=== PATIENT | female | born 1970 | race African-American/Black ===

== ENCOUNTER 2019-09-14 11:46 | Emergency (ER) | payer MEDICAID ==
[~2019-09-14] VITALS: Ht 177.8 cm; Wt 68.0 kg
[2019-09-14 12:04] VITALS: BP 159/103
--- NOTE | 2019-09-14 12:09 | NUR ---
TRIAGE COMPLETE. VSS. RETURNED TO LOBBY AWAITNG BED IN ED.
[2019-09-14 13:23] LABS: APPEARANCE,URINE CLEAR (CLEAR); BILIRUBIN,URINE NEGATIVE (NEGATIVE); BLOOD, URINE NEGATIVE (NEGATIVE); COLOR,URINE YELLOW (YELLOW); LEUKOCYTE ESTERASE ,URINE TRACE (NEGATIVE); NITRITE, URINE NEGATIVE (NEGATIVE); UGLUCOSE NEGATIVE (NEGATIVE)
--- NOTE | 2019-09-14 13:27 | NUR ---
PT TAKEN TO ER BED 05
--- NOTE | 2019-09-14 13:31 | NUR ---
48 Y/O F C/O URINARY FREQUENCY WITH PAIN. NO BACK PAIN, N/V X 3 DAYS. PT STATES SHE HAS TAKEN AZO OVER THE COUNTER, NO RELIEF. PT GAVE UA.
[2019-09-14] MEDS ORDERED: cefTRIAXone 1,000 MG in LIDOCAINE MPF 1% 2.1 ML IM ONE (13:35)
[2019-09-14] MEDS ORDERED: LIDOCAINE MPF 1% 5 ML ONE (13:43)
[2019-09-14] MEDS ORDERED: cefTRIAXone 1,000 MG VIAL ONE (13:43)
[2019-09-14 13:53] VITALS: BP 159/103
--- NOTE | 2019-09-14 13:53 | NUR ---
Patient discharged with v/s stable. Written and verbal after care instructions given and explained. Patient alert, oriented and verbalized understanding of instructions. Ambulatory with steady gait. All questions addressed prior to discharge. ID band removed. Patient advised to follow up with PMD. Rx of PYRIDIUM, NITROFURANTOIN given. Patient educated on indication of medication including possible reaction and side effects. Opportunity to ask questions provided and answered.
[2019-09-14 17:34] LABS: RBC,URINE 0 /HPF (0-5); WBC,URINE 0-5 /HPF (0-5)
== END 2019-09-14 13:53 | disposition home or self-care (01) ==
LOC: MED 11:46
DX: N39.0 Urinary tract infection, site not specified (principal); I10 Essential (primary) hypertension; Z88.5 Allergy status to narcotic agent; Z98.890 Other specified postprocedural states
CPT/HCPCS: 81001; 81025; 96372; 99283; J0696; J2001

== ENCOUNTER 2021-08-31 18:04 | Emergency (ER) | payer MEDICAID ==
[~2021-08-31] VITALS: Ht 172.7 cm; Wt 91.2 kg
[2021-08-31 19:00] VITALS: BP 150/85
--- NOTE | 2021-08-31 21:15 | NUR ---
0616 - PER NO ANSWER IN LOBBY
--- NOTE | 2021-09-01 00:41 | NUR ---
PER GLORIA WANTS TO BE SEEN
[2021-09-01] MEDS ORDERED: KETOROLAC 30 MG/ML VIAL IM ONE (01:15)
[2021-09-01 02:40] VITALS: BP 150/85
--- NOTE | 2021-09-01 02:40 | NUR ---
50 Y/O FEMALE C/O LUMBAR PAIN 6 HRS. PATIENT PRESENTS TO ED WITH PAIN IN HER BACK. PT STATES SHE WAS TRYING TO ROUGH IT OUT BUT THE PAIN BECAME TOO UNBEARABLE AND CAME TO THE ER. DENIES N/V/D; SKIN IS PINK/WARM/DRY; AAOX4 WITH EVEN AND STEADY GAIT; LUNGS CLEAR BL; HR EVEN AND REGULAR; PT DENIES ANY FEVER, CP, SOB, OR COUGH AT THIS TIME; PATIENT STATES PAIN OF 7/10 AT THIS TIME; VSS; PATIENT SEATED IN THE LOBBY WITH SPOUSE. ER MD MADE AWARE OF PT STATUS. ALL: CODEINE
--- NOTE | 2021-09-01 02:50 | NUR ---
Patient discharged with v/s stable. Written and verbal after care instructions given and explained. Patient verbalized understanding. Ambulatory with steady gait. All questions addressed prior to discharge. Advised to follow up with PMD. VSS, A/OX4, UNLABORED BREATHING, AMBULATORY, AND CALM DEMEANOR.
[2021-09-01] MEDS ORDERED: KETOROLAC 30 MG/ML VIAL ONE (02:52)
== END 2021-09-01 02:59 | disposition home or self-care (01) ==
LOC: MED 18:04
DX: S39.012A Strain of muscle, fascia and tendon of lower back, initial encounter (principal); I10 Essential (primary) hypertension; Z88.5 Allergy status to narcotic agent; X58.XXXA Exposure to other specified factors, initial encounter; Y93.89 Activity, other specified; Y92.89 Other specified places as the place of occurrence of the external cause; Y99.8 Other external cause status
CPT/HCPCS: 81002; 81025; 96372; 99283; J1885